=== PATIENT | male | born 1970 | race Caucasian/White ===

== ENCOUNTER → 2016-12-07 | Outpatient (CLI) | payer OTHER ==
[~2016-12-07] MED LIST: ASPI-586 PO; MULT-406 PO
--- NOTE | 2016-12-07 15:25 | Diagnostic Imaging Report ---
INDICATION: Dysphagia. Often chokes on steak or bread which gets stuck in the throat area and requires either regurgitation or multiple drinks of water. Occasional choking with drinking fluids. EXAMINATION: Barium swallow esophagram 12/07/2016. FINDINGS: The manager technical radiograph of the chest demonstrates no acute cardiopulmonary process. Swallowing mechanism is intact with normal motility of the esophagus. There was no evidence for aspiration. On multiple swallows, there is a questioned persistent filling defect within the proximal esophagus just distal to the piriform sinuses of uncertain significance. Direct visualization would be recommended. Distal to this region, there is a focus of some narrowing which cannot be measured on these images with approximately 1/4 loss of lumen size compared to the more distal esophagus. More distally, the esophagus demonstrates normal caliber. There is no esophageal hernia appreciated. There are diffuse transverse like bands throughout the mid and lower esophagus suggesting a feline esophagus. No reflux was witnessed during examination. IMPRESSION: 1. Questioned filling defect in the proximal esophagus as described above. Direct visualization recommended, given the history of things getting stuck in the upper esophagus. 2. A prominent appearing cricopharyngeus. 3. Feline appearance to the esophagus likely due to chronic reflux, correlate with history and symptoms. Dictated by: Dictated on workstation # [id number]
== END ==
LOC: RAD 13:04
PROVIDERS: ATTEND Surgery
DX: R13.19 Other dysphagia (principal)
CPT/HCPCS: 74220